=== PATIENT | male | born 1995 | race Caucasian/White ===

== ENCOUNTER 2017-10-08 19:46 | Emergency (ER) | payer OTHER ==
[2017-10-08] MEDS: NORCO 5/325MG TABLET (BULK FOR ED) PO (23:03)
== END 2017-10-08 23:35 | disposition home or self-care (01) ==
LOC: M ED 19:46
DX: H61.23 Impacted cerumen, bilateral (principal); K08.89 Other specified disorders of teeth and supporting structures; F17.200 Nicotine dependence, unspecified, uncomplicated
CPT/HCPCS: 99282

== ENCOUNTER → 2018-12-16 | Outpatient (REF) | payer OTHER ==
[~2018-12-16] MED LIST: DEBR6.5S4 AU; HYDR-3715 PO; IBUP-1022 PO
== END ==
LOC: M SFHCLERA 16:47
PROVIDERS: ATTEND Nurse Practitioner Family
DX: J02.9 Acute pharyngitis, unspecified (principal)

== ENCOUNTER → 2018-12-16 | Outpatient (CLI) | payer OTHER ==
--- NOTE | 2018-12-16 17:07 | REP ---
Chest two views HISTORY: Cough Comparison: None The lungs are clear. The heart is normal in size. The pulmonary vasculature is normal in appearance. The bony structure is intact. IMPRESSION: No acute disease. Electronically Signed by Casey Granados MD 12/16/2018 04:59 P
== END ==
LOC: M LRY 16:45
PROVIDERS: ATTEND Nurse Practitioner Family
DX: R05 Cough (principal)
CPT/HCPCS: 71046; 87880; G0463